=== PATIENT | female | born 1975 | race Caucasian/White ===

== ENCOUNTER → 2016-09-25 | Outpatient (CLI) | payer MEDICARE | LOC: EMI 09:55 | DX: G35 Multiple sclerosis (principal); J34.89 Other specified disorders of nose and nasal sinuses; R90.89 Other abnormal findings on diagnostic imaging of central nervous system; M50.30 Other cervical disc degeneration, unspecified cervical region | CPT/HCPCS: 70553; 72156; A9577; J7050 ==

== ENCOUNTER → 2016-11-05 | Outpatient (CLI) | payer MEDICARE ==
[~2016-11-05] VITALS: Ht 160 cm; Wt 57.6 kg
== END ==
LOC: OPSV 15:16
DX: G35 Multiple sclerosis (principal)
CPT/HCPCS: 96365; J2930; J7070

== ENCOUNTER → 2016-11-06 | Outpatient (CLI) | payer MEDICARE ==
[~2016-11-06] VITALS: Ht 160 cm; Wt 57.6 kg
== END ==
LOC: OPSV 15:21
DX: G35 Multiple sclerosis (principal)
CPT/HCPCS: 96365; J2930; J7070

== ENCOUNTER → 2016-11-09 | Outpatient (CLI) | payer MEDICARE | LOC: OPSV 16:03 | DX: G35 Multiple sclerosis (principal) | CPT/HCPCS: 96365; J2930; J7070 ==

== ENCOUNTER → 2020-08-29 | Outpatient (CLI) | payer MEDICARE | LOC: EMI 08-08 09:45 | DX: G35 Multiple sclerosis (principal) | CPT/HCPCS: 70553; 72156; 72157; A9577 ==